=== PATIENT | female | born 1955 | race American Indian/Alaskan Native ===

== ENCOUNTER 2021-06-03 17:15 | Emergency (ER) | payer MEDICARE, BC, OTHER ==
[2021-06-03] MEDS ORDERED: Sodium Chloride 0.9% 2.5 ML Syringe FLUSH PRN (19:24)
[2021-06-03] MEDS ORDERED: Sodium Chloride 0.9% 10 ML Syringe FLUSH PRN (19:24)
[2021-06-03 21:13] LABS: CARBON DIOXIDE,CO2 29.6 mmol/L (21.0-32.0); POTASSIUM,K 4.4 mmol/L (3.5-5.1)
[2021-06-03] MEDS ORDERED: Morphine 4 MG/ML Syringe IVPUSH ONE (21:55)
[2021-06-03] MEDS ORDERED: traMADol 50 MG Tab PO ONE (21:55)
[2021-06-03] MEDS ORDERED: Ketorolac 15 MG/ML SDV IVPUSH STA (21:55)
[2021-06-03] MEDS ORDERED: cefTRIAXone 1 GM in Premix Bag 1 BAG IV ONE (22:08)
--- NOTE | 2021-06-03 23:01 | EDM.PDOC ---
ED HPI GENERAL MEDICAL PROBLEM - General Chief Complaint: Abdominal Pain Stated Complaint: RIGHT SIDE PAIN Time Seen by Provider: 06/03/21 20:43 - History of Present Illness INITIAL COMMENTS - FREE TEXT/NARRATIVE: HISTORY AND PHYSICAL: History of present illness: This is a 65-year-old female with history significant for diabetes, status post cholecystectomy, status post appendectomy, status post , who presents to the ER today secondary to right upper quadrant abdominal pain for 2 to 3 weeks that is been intermittent in nature. Patient reports the pain is not related to meals. Patient has any recent fevers, shakes, chills. Patient has been nauseous but no vomiting or diarrhea. Patient has any constipation. Patient has any dysuria, frequency, urgency, chest pain, shortness of breath. Patient has any change in dietary habits. Patient reports that she has been able to tolerate p.o. solids and liquids well. Patient reports that she went to get a CT scan of the abdomen and pelvis yesterday at her hospital at [place] and all her blood tests and x-ray results were negative. Patient was supposed to follow-up with her doctor. Patient ports the pain continued so they recommended that she get an MRI of her abdomen pelvis. Patient reports that she has plans to make an appointment to see her doctor on Saturday since her doctor was not open today. Patient ports that today while she was at [facility] the pain started up again so came to the ED for further evaluation. Patient has any melena or bright red blood per rectum. Review of systems: As per history of present illness and below otherwise all systems reviewed and negative. Past medical history: As per history of present illness and as reviewed below otherwise noncontributory. Surgical history: As per history of present illness and as reviewed below otherwise noncontributory. Social history: No reported history of drug abuse. Family history: As per history of present illness and as reviewed below otherwise noncontributory. Physical exam: This patient was seen and evaluated during the 2019 SARS-CoV-2 novel coronavirus pandemic period. Community viral transmission is ongoing at time of this encounter and the emergency department is operating under pandemic response procedures. Constitutional: Patient is oriented to person, place, and time. Appears well- developed and well-nourished. No distress. HEENT: Moist mucous membranes Head: Normocephalic and atraumatic Eyes: Right eye exhibits no discharge. Left eye exhibits no discharge. No scleral icterus Neck: Normal range of motion. No tracheal deviation present. Cardiovascular: Normal rate and regular rhythm. Pulmonary: Effort normal, no respiratory distress. Abd: Soft, nondistended, no rebound/guarding, no psoas or obturator signs, no tenderness at Mcberney's point, no Galvan's sign. Pt does not present with an exam that would be consistent with an acute surgical abdomen at this time. Mild tenderness palpation of the right upper quadrant. Musculoskeletal: Normal range of motion Neurologic: Alert and oriented to person, place and time. Skin: [place], warm and dry. Psychiatric: Normal mood and affect. Behavior is normal. Judgment and thought content normal. Nursing note and vital signs have been reviewed Diagnostics: [] Therapeutics: [] Assessment and plan: This is a 65-year-old female who presents to the ER today with right upper aakash drant abdominal pain and is status post cholecystectomy many years ago. Patient labs are all within normal limits but does have a UA consistent with a urinary tract infection. Patient was given a dose of IV Rocephin here will be discharged with a prescription for Omnicef as this may be the cause of her pain and discomfort. Patient was also encouraged to still make her appointment on Saturday to see her family doctor so they can assist her with any other cause of the pain that she may be having. Patient is clinically hemodynamically stable here in the ED and feels much better after the pain medicines and IV fluids that she was given as well as antibiotics given in the ED. Patient reports that they did give her [place] at her other ER visit and she is only taking 3 of the 6 that were prescribed for her and does not need any further pain medicines. At this time, the patient is declining gaining a repeat CT scan of the abdomen pelvis as she has recently had 1 done does not want the radiation exposure. Reassessment at the time of disposition demonstrates that the patient is in no acute distress. The patient has remained stable throughout the entire ED visit and is without objective evidence for acute process requiring urgent intervention or hospitalization. The patient is stable for discharge, counseling is provided as documented above, discussed symptomatic treatment and specific conditions for return. I have spoken with the patient/caregiver and discussed todays findings, in addition to providing specific details for the plan of care. Questions are answered and there is agreement with the plan. Definitive disposition and diagnosis as appropriate pending reevaluation and review of above. 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 History: Reports: Endocrine/Metabolic History: Reports: Diabetes, Type II - Past Surgical History GI Surgical History: Reports: Appendectomy, Cholecystectomy Social & Family History - Tobacco Use Tobacco Use Status *Q: Former Tobacco User Used Tobacco, but Quit: Yes Month/Year Tobacco Last Used: 40 years - Recreational Drug Use Recreational Drug Use: No ED ROS GENERAL - Review of Systems Review Of Systems: See Below ED EXAM, GENERAL - Physical Exam Exam: See Below Course - Vital Signs Last Recorded V/S: Last Vital Signs Temp 97.7 F 06/03/21 18:50 Pulse 83 06/03/21 18:50 Resp 18 06/03/21 18:50 BP 121/71 06/03/21 18:50 Pulse Ox 95 06/03/21 18:50 - Orders/Labs/Meds Orders: Active Orders 24 hr Category Date Time Status Sodium Chloride 0.9% [Saline Flush] Med 06/03/21 19:24 Active 10 ml FLUSH ASDIRECTED PRN Sodium Chloride 0.9% [Saline Flush] Med 06/03/21 19:24 Active 2.5 ml FLUSH ASDIRECTED PRN Saline Lock Insert [OM.PC] Stat Oth 06/03/21 19:24 Ordered Medication Orders Sodium Chloride (Sodium Chloride 0.9% 10 Ml Syringe) 10 ml FLUSH ASDIRECTED PRN PRN Reason: Keep Vein Open Last Admin: 06/03/21 20:50 Dose: 10 ml Documented by: EILEEN Sodium Chloride (Sodium Chloride 0.9% 2.5 Ml Syringe) 2.5 ml FLUSH ASDIRECTED PRN PRN Reason: Keep Vein Open Last Admin: 06/03/21 20:50 Dose: 2.5 ml Documented by: EILEEN Labs: Laboratory Tests 09/25/21 09/25/21 09/25/21 Range/Units 20:49 20:49 21:38 WBC 8.97 (4.0-11.0) K/uL RBC 5.05 (4.30-5.90) M/uL Hgb 13.1 (12.0-16.0) g/dL Hct 41.3 (36.0-46.0) % MCV 81.8 (80.0-98.0) fL MCH 25.9 L (27.0-32.0) pg MCHC 31.7 (31.0-37.0) g/dL RDW Std Deviation 42.8 (28.0-62.0) fl RDW Coeff of Jack 14 (11.0-15.0) % Plt Count 237 (150-400) K/uL MPV 9.70 (7.40-12.00) fL Neut % (Auto) 60.1 (48.0-80.0) % Lymph % (Auto) 29.0 (16.0-40.0) % [place] % (Auto) 5.4 (0.0-15.0) % Eos % (Auto) 5.2 (0.0-7.0) % Baso % (Auto) 0.3 (0.0-1.5) % Neut # (Auto) 5.4 (1.4-5.7) K/uL Lymph # (Auto) 2.6 H (0.6-2.4) K/uL [place] # (Auto) 0.5 (0.0-0.8) K/uL Eos # (Auto) 0.5 (0.0-0.7) K/uL Baso # (Auto) 0.0 (0.0-0.1) K/uL Nucleated RBC % 0.0 /100WBC Nucleated RBCs # 0 K/uL Sodium 137 (136-145) mmol/L Potassium 4.4 (3.5-5.1) mmol/L Chloride 102 (98-107) mmol/L Carbon Dioxide 29.6 (21.0-32.0) mmol/L BUN 20 H (7.0-18.0) mg/dL Creatinine 1.6 H (0.6-1.0) mg/dL Est Cr Clr Drug Dosing 39.18 mL/min Estimated GFR (MDRD) 32.3 ml/min Glucose 307 H (74-106) mg/dL Calcium 9.5 (8.5-10.1) mg/dL Total Bilirubin 0.4 (0.2-1.0) mg/dL AST 34 (15-37) IU/L ALT 25 (14-63) IU/L Alkaline Phosphatase 124 H (46-116) U/L Total Protein 8.0 (6.4-8.2) g/dL Albumin 3.5 (3.4-5.0) g/dL Globulin 4.5 H (2.6-4.0) g/dL Albumin/Globulin Ratio 0.8 L (0.9-1.6) Lipase 130 (73-393) U/L Urine Color YELLOW Urine Appearance SLT CLOUDY Urine pH 6.0 (5.0-8.0) Ur Specific [place] 1.020 (1.001-1.035) Urine Protein NEGATIVE (NEGATIVE) mg/dL Urine Glucose (UA) 500 H (NEGATIVE) mg/dL Urine Ketones NEGATIVE (NEGATIVE) mg/dL Urine Occult Blood TRACE-INTACT H (NEGATIVE) Urine Nitrite POSITIVE H (NEGATIVE) Urine Bilirubin NEGATIVE (NEGATIVE) Urine Urobilinogen 0.2 (<2.0) EU/dL Ur Leukocyte Esterase SMALL H (NEGATIVE) Urine RBC 0-2 (0-2/HPF) Urine WBC 20-30 (0-5/HPF) Ur Epithelial Cells RARE (NONE-FEW) Urine Bacteria 3+ H (NEGATIVE) Meds: Medications Generic Name Dose Route Start Last Admin Trade Name Holaq PRN Reason Stop Dose Admin Sodium Chloride 10 ml 06/03/21 19:24 06/03/21 20:50 Sodium Chloride 0.9% 10 Ml Syringe FLUSH 10 ml ASDIRECTED PRN Administration Keep Vein Open Sodium Chloride 2.5 ml 06/03/21 19:24 06/03/21 20:50 Sodium Chloride 0.9% 2.5 Ml Syringe FLUSH 2.5 ml ASDIRECTED PRN Administration Keep Vein Open Discontinued Medications Generic Name Dose Route Start Last Admin Trade Name Frenicky PRN Reason Stop Dose Admin Ceftriaxone Sodium/Dextrose 1 50 mls @ 100 mls/hr 06/03/21 22:08 06/03/21 22:26 gm/ Premix IV 06/03/21 22:37 100 mls/hr ONETIME ONE Administration Ketorolac Tromethamine 15 mg 06/03/21 21:55 06/03/21 22:30 Ketorolac 15 Mg/Ml Sdv IVPUSH 06/03/21 21:56 15 mg Q6H STA Administration Morphine Sulfate 4 mg 06/03/21 21:55 06/03/21 22:31 Morphine 4 Mg/Ml Syringe IVPUSH 06/03/21 21:56 4 mg ONETIME ONE Administration Tramadol HCl 50 mg 06/03/21 21:55 06/03/21 22:29 Tramadol 50 Mg Tab PO 06/03/21 21:56 50 mg ONETIME ONE Administration Departure - Departure Time of Disposition: 22:58 Disposition: Home, Self-Care 01 Condition: Good Clinical Impression: Abdominal pain, Urinary tract infection - Discharge Information Instructions: Abdominal Pain, Adult, [id number], Urinary Tract Infection, Adult Referrals: Tejas Perez MD [Primary Care Provider] - Additional Instructions: You were seen and evaluated in the ER today secondary to pain that you have been having in your abdomen. Your blood tests have all been within normal limits. Your urinalysis did reveal that he do have an infection with a new urinary tract system. You will be given a prescription for an antibiotic to take twice a day. You were also given a dose of antibiotic through your IV to help kick start your treatment. Please make and keep your appointment with your doctor this week so that they can reevaluate your pain and see if you need referrals for further testing. The following information is given to patients seen in the emergency department who are being discharged to home. This information is to outline your options for follow-up care. We provide all patients seen in our emergency department with a follow-up referral. The need for follow-up, as well as the timing and circumstances, are variable depending upon the specifics of your emergency department visit. If you don't have a primary care physician on staff, we will provide you with a referral. We always advise you to contact your personal physician following an emergency department visit to inform them of the circumstance of the visit and for follow-up with them and/or the need for any referrals to a consulting specialist. The emergency department will also refer you to a specialist when appropriate. This referral assures that you have the opportunity for follow-up care with a specialist. All of these measure are taken in an effort to provide you with optimal care, which includes your follow-up. Under all circumstances we always encourage you to contact your private physician who remains a resource for coordinating your care. When calling for follow-up care, please make the office aware that this follow-up is from your recent emergency room visit. If for any reason you are refused follow-up, please contact the [facility] Emergency Department at and asked to speak to the emergency department charge nurse. [facility] - [facility] [address] [place] [id number] [facility] [place] [id number] Sepsis Event Note (ED) - Evaluation Sepsis Screening Result: No Definite Risk - Focused Exam Vital Signs: Vital Signs Temp Pulse Resp BP Pulse Ox 06/03/21 18:50 97.7 F 83 18 121/71 95 - My Orders Last 24 Hours: My Active Orders 06/03/21 19:24 Sodium Chloride 0.9% [Saline Flush] 10 ml FLUSH ASDIRECTED PRN Sodium Chloride 0.9% [Saline Flush] 2.5 ml FLUSH ASDIRECTED PRN Saline Lock Insert [OM.PC] Stat - Assessment/Plan Last 24 Hours: My Active Orders 06/03/21 19:24 Sodium Chloride 0.9% [Saline Flush] 10 ml FLUSH ASDIRECTED PRN Sodium Chloride 0.9% [Saline Flush] 2.5 ml FLUSH ASDIRECTED PRN Saline Lock Insert [OM.PC] Stat
== END 2021-06-03 23:10 | disposition home or self-care (01) ==
LOC: MW.ED 17:15
DX: N39.0 Urinary tract infection, site not specified (principal); I10 Essential (primary) hypertension; I25.10 Atherosclerotic heart disease of native coronary artery without angina pectoris; E11.9 Type 2 diabetes mellitus without complications; Z87.891 Personal history of nicotine dependence; Z90.49 Acquired absence of other specified parts of digestive tract
CPT/HCPCS: 36415; 80053; 81001; 83690; 85025; 96374; 96375; 99284; A9270; J0696; J1885; J2270